=== PATIENT | female | born 1965 | race Caucasian/White ===

== ENCOUNTER 2017-02-01 11:51 | Observation (INO) | payer OTHER ==
[~2017-02-01] VITALS: Ht 154.9 cm; Wt 65.3 kg
--- NOTE | 2017-02-01 15:47 | DIAGNOSTIC IMAGING REPORT ---
PROCEDURE: CT ABD/PELVIS WITH CONTRAST CLINICAL INDICATION: ABDOMINAL PAIN TECHNIQUE: 125 ml of Isovue 300 were injected intravenously and axial images were obtained of the entire abdomen and pelvis with sagittal and coronal reformations. COMPARISON: None. FINDINGS: ABDOMEN: Lung base are clear. Heart size is normal. Liver, gallbladder, pancreas, spleen, adrenal glands and left kidney are normal. 2 cm cortical hypoechoic right renal upper pole lesion with irregular wall. Mild atherosclerosis. Status post gastric bypass and left abdominal small bowel anastomosis. PELVIS: Normal appendix. Minor sigmoid diverticulosis. Bilateral tubal ligation. Uterus, adnexa and bladder are unremarkable. Trace of free fluid. No inflammatory changes. Minor degenerative changes. IMPRESSION: 1. Status post gastric bypass surgery 2. 2 cm renal upper pole cortical indeterminate lesion. Recommend dedicated renal CT scan. 3. Bilateral tubal ligation 4. Results discussed with Dr. Ozuna All CT scans at this facility use dose modulation, iterative reconstruction, and/or weight-based dosing when appropriate to reduce radiation dose to as low as reasonably achievable.
--- NOTE | 2017-02-01 18:33 | DIAGNOSTIC IMAGING REPORT ---
PROCEDURE: US ABDOMEN ULTRASOUND-LIMITED INDICATION: RUQ PAIN TECHNIQUE: Gillette scale and color Doppler sonographic images of the abdomen were obtained. COMPARISON: CT abdomen/pelvis 02/01/2017. FINDINGS: 6 mm non mobile gallbladder mural focus suggestive of a polyp. Normal CBD measures 6.6 mm. Negative Bowman's sign. Visualized portion of the pancreas is unremarkable. Normal liver. Aorta and IVC are patent. Normal hepatopetal flow. Normal right kidney measures 11.4 cm. IMPRESSION: 1. 6 mm gallbladder polyp
--- NOTE | 2017-02-01 19:32 | ED ORDER SUMMARY ---
..... Patient: HENOK ANDREWS OrderSheet [facility] VisitID: [id number] [address] [place] [address] 51y, F Registration Date/Time: 02/01/2017 ORDER SHEET Weight: 72.5 kg (stated) Allergies: Bactrim DS, Penicillins, Percocet, Vicodin, NSAIDS due to bareatric surgery GENERAL ORDERS: Foreclosure Home Inspector (Continuous) (13:03 02/01/2017 Jessica CANTU) (Ack 13:11 Benito) (13:43 DDean R.N.) UA-Culture if indicated Urgent (13:03 02/01/2017 Jessica CANTU) (Ack 13:11 Benito) (14:24 DDean R.N.) Lipase Urgent (13:02/01/2017 Jessica CANTU) (Ack 13:11 Benito) (14:24 DDean R.N.) Cardiac Panel Stat (13:03 02/01/2017 Jessica CANTU) (Ack 13:11 Benito) (14:24 DDean R.N.) EKG - ER Stat (13:03 02/01/2017 Jessica CANTU) (Ack 13:11 Benito) (13:26 DDean R.N.) Acetone, Serum Urgent (13:05 02/01/2017 Jessica CANTU) (Ack 13:11 Benito) (14:24 DDean R.N.) CT Abd/Pel w Cont (Yes) (0.8 /15) (Hx rachana en Y gastric bypass) Urgent (14:26 02/01/2017 Jessica CANTU) (Ack 14:44 Benito) (18:11 DDean R.N.) US Abdomen Limited (Yes) Urgent (16:07 02/01/2017 Jessica CANTU) (Ack 16:16 Benito) (17:42 DDean R.N.) MEDICATION ORDERS: IV FLUIDS: IV NS : initial bolus none -, then 1000 mL/hr for 1h (NOW); Urgent (13:01 02/01/2017 Jessica CANTU) (Ack 13:02 Wisam R.N.) (13:05 Wisam R.N.) Dilaudid IV 1 mg (NOW) (13:02 02/01/2017 Jessica CANTU) (Ack 13:07 DDean R.N.) (13:17 DDean R.N.) Zofran IV 8 mg (NOW) (13:02 02/01/2017 Jessica CANTU) (Ack 13:07 DDean R.N.) (13:18 DDean R.N.) Dilaudid IV 0.5 mg (may repeat x 1 ) (18:33 02/01/2017 DDean R.N. verbal order read back to Jessica CANTU) (18:34 DDean R.N.) IV NS with Normal Saline 1 Liter: initial bolus none -, then 500 mL/hr for X1 (NOW) (19:02 02/01/2017 DDean R.N. per protocol) (19:03 DDean R.N.) ORDER SHEET NOTES: [Electronically signed by Shannan Maldonado R.N. (20:15 02/01/2017)] [Electronically signed by Ben Ozuna MD (22:51 02/01/2017)] [Electronically locked/signed by Shannan Maldonado R.N. (20:15 02/01/2017)]
--- NOTE | 2017-02-01 19:32 | ED ORDER SUMMARY ---
..... Patient: HENOK ANDREWS OrderSheet [facility] VisitID: [id number] [address] [place] [address] 51y, F Registration Date/Time: 02/01/2017 ORDER SHEET Weight: 72.5 kg (stated) Allergies: Bactrim DS, Penicillins, Percocet, Vicodin, NSAIDS due to bareatric surgery GENERAL ORDERS: Director Targeted Marketing (Continuous) (13:03 02/01/2017 Jessica CANTU) (Ack 13:11 Benito) (13:43 DDean R.N.) UA-Culture if indicated Urgent (13:03 02/01/2017 Jessica CANTU) (Ack 13:11 Benito) (14:24 DDean R.N.) Lipase Urgent (13:02/01/2017 Jessica CANTU) (Ack 13:11 Benito) (14:24 DDean R.N.) Cardiac Panel Stat (13:03 02/01/2017 Jessica CANTU) (Ack 13:11 Benito) (14:24 DDean R.N.) EKG - ER Stat (13:03 02/01/2017 Jessica CANTU) (Ack 13:11 Benito) (13:26 DDean R.N.) Acetone, Serum Urgent (13:05 02/01/2017 Jessica CANTU) (Ack 13:11 Benito) (14:24 DDean R.N.) CT Abd/Pel w Cont (Yes) (0.8 /15) (Hx rachana en Y gastric bypass) Urgent (14:26 02/01/2017 Jessica CANTU) (Ack 14:44 Benito) (18:11 DDean R.N.) US Abdomen Limited (Yes) Urgent (16:07 02/01/2017 Jessica CANTU) (Ack 16:16 Benito) (17:42 DDean R.N.) MEDICATION ORDERS: IV FLUIDS: IV NS : initial bolus none -, then 1000 mL/hr for 1h (NOW); Urgent (13:01 02/01/2017 Jessica CANTU) (Ack 13:02 Wisam R.N.) (13:05 Wisam R.N.) Dilaudid IV 1 mg (NOW) (13:02 02/01/2017 Jessica CANTU) (Ack 13:07 DDean R.N.) (13:17 DDean R.N.) Zofran IV 8 mg (NOW) (13:02 02/01/2017 Jessica CANTU) (Ack 13:07 DDean R.N.) (13:18 DDean R.N.) Dilaudid IV 0.5 mg (may repeat x 1 ) (18:33 02/01/2017 DDean R.N. verbal order read back to Jessica CANTU) (18:34 DDean R.N.) IV NS with Normal Saline 1 Liter: initial bolus none -, then 500 mL/hr for X1 (NOW) (19:02 02/01/2017 DDean R.N. per protocol) (19:03 DDean R.N.) ORDER SHEET NOTES: [Electronically signed by Shannan Maldonado R.N. (20:15 02/01/2017)] [Electronically signed by Ben Ozuna MD (22:51 02/01/2017)] [Electronically locked/signed by Shannan Maldonado R.N. (20:15 02/01/2017)]
--- NOTE | 2017-02-01 19:32 | ED CLINICAL REPORT ---
Clinical Report - Physicians/Mid Levels [facility] [address] [place] [address] 02/01/2017 11:53 Patient: HENOK BENITEZ Time Seen: 12:50. Arrived- By private vehicle. Historian- patient and family. HISTORY OF PRESENT ILLNESS Chief Complaint: ABDOMINAL PAIN. At its maximum, severity described as severe. When seen in the E.D., severity described as severe. Modifying factors. Not worsened by anything. Not relieved by anything. It is described as "pain". No radiation. It is described as located in the epigastric area. This started about 4 days ago; Mrs. Benitez has had 4 days of mild to moderate epigastric pain which wax and wane. This morning the pain became markedly worse and she had 4-5 episodes of nonbilious vomiting. The pain was severe. The patient has had nausea. She has had severe vomiting. The vomiting has occurred numerous times. No bilious emesis, feculent emesis, blood-tinged emesis or coffee-grounds emesis. Similar symptoms previously: None. Recent medical care: Not recently seen/assessed. REVIEW OF SYSTEMS Has had a tubal ligation. No constipation, black stools, difficulty with urination or urination or bloody stools. No fever, sore throat or throat, blurred vision or chest pain. No cough, joint pain, skin rash or lesions or chills. No back pain, chills, fever, decreased vision or ear pain. No urinary frequency or urinary problems, hematuria or pelvic pain. PAST HISTORY PCP: [facility] Dr Howard ([facility] surgery) OPs: Gastric bypass Fortunato en Y, C section x, R total knee. Illness: DM 2. Medications: Albuterol Sulfate HFA Inhalation 2 puffs, as needed. Biotene Dry Mouth Mouth/Throat. Allergies: Bactrim DS.(vomiting) NSAIDS due to bareatric surgery . Penicillins. Definite Moderate(hives) Percocet.(itching, vomiting) Vicodin.(vomiting). SOCIAL HISTORY Never smoker. ADDITIONAL NOTES The nursing notes have been reviewed. PHYSICAL EXAM Vital Signs: 02/01/2017 19:55 BP: 129/68. HR: 72. RR: 18. O2 saturation: 98%. Pain level now: 08/20. 02/01/2017 19:30 BP: 147/80. HR: 73. RR: 18. O2 saturation: 99%. Pain level now: 08/20. 02/01/2017 18:50 BP: 134/88. HR: 72. RR: 18. O2 saturation: 100%. Pain level now: 08/20. 02/01/2017 18:30 BP: 175/85. HR: 80. RR: 20. O2 saturation: 100%. Pain level now: 03/20. 02/01/2017 17:45 BP: 131/71. HR: 92. RR: 18. O2 saturation: 99%. Pain level now: 11/18. 02/01/2017 15:40 BP: 142/85. HR: 97. RR: 18. O2 saturation: 100%. Pain level now: 09/20. 02/01/2017 14:45 BP: 149/86. HR: 100. RR: 18. O2 saturation: 100%. Pain level now: . 02/01/2017 13:40 BP: 193/84. HR: 64. RR: 16. O2 saturation: 99%. 02/01/2017 13:10 BP: 160/71. HR: 68. RR: 18. O2 saturation: 92%. Pain level now: 12/18. 02/01/2017 12:27 BP: 180/92. HR: 92. RR: 26. O2 saturation: 99%. Temp: 97.7 F. Appearance: Alert. Patient in severe distress. Eyes: Pupils equal, round and reactive to light. No scleral icterus. ENT: Pharynx normal. Neck: Normal inspection. CVS: Normal heart rate and rhythm. Heart sounds normal. Respiratory: No respiratory distress. Breath sounds normal. Abdomen: Moderate tenderness in the upper abdomen. Abnormal bowel sounds (mildly diminished). No organomegaly. No mass. Femoral pulses equal. No rebound tenderness or guarding. (No inquinal hernia). Back: No CVA tenderness. Skin: Skin warm. Normal skin color. No rash. Extremities: Extremities exhibit normal ROM. No lower extremity edema. Neuro: No alteration in mental status. LABS, X-RAYS, AND EKG Abdominal CT: CLINICAL INDICATION: ABDOMINAL PAIN TECHNIQUE: 125 ml of Isovue 300 were injected intravenously and axial images were obtained of the entire abdomen and pelvis with sagittal and coronal reformations. COMPARISON: None. FINDINGS: ABDOMEN: Lung base are clear. Heart size is normal. Liver, gallbladder, pancreas, spleen, adrenal glands and left kidney are normal. 2 cm cortical hypoechoic right renal upper pole lesion with irregular wall. Mild atherosclerosis. Status post gastric bypass and left abdominal small bowel anastomosis. PELVIS: Normal appendix. Minor sigmoid diverticulosis. Bilateral tubal ligation. Uterus, adnexa and bladder are unremarkable. Trace of free fluid. No inflammatory changes. Minor degenerative changes. IMPRESSION: 1. Status post gastric bypass surgery 2. 2 cm renal upper pole cortical indeterminate lesion. Recommend dedicated renal CT scan. 3. Bilateral tubal ligation 4. Results discussed with Dr. Ozuna All CT scans at this facility use dose modulation, iterative reconstruction, and/or weight-based dosing when appropriate to reduce radiation dose to as low as reasonably achievable. Electronically Final signed by:Isaiah Flowers MD 02/01/2017 3:47:09 PM. The study was interpreted by the radiologist and discussed with the radiologist. Abdominal Sonogram: (PROCEDURE: US ABDOMEN ULTRASOUND-LIMITED INDICATION: RUQ PAIN TECHNIQUE: Gillette scale and color Doppler sonographic images of the abdomen were obtained. COMPARISON: CT abdomen/pelvis 02/01/2017. FINDINGS: 6 mm non mobile gallbladder mural focus suggestive of a polyp. Normal CBD measures 6.6 mm. Negative Bowman's sign. Visualized portion of the pancreas is unremarkable. Normal liver. Aorta and IVC are patent. Normal hepatopetal flow. Normal right kidney measures 11.4 cm. IMPRESSION: 1. 6 mm gallbladder polyp Electronically Final signed by:Isaiah Flowers MD 02/01/2017 6:33:32 PM). The study was interpreted by the radiologist and discussed with the radiologist. Laboratory Tests: UA-Culture if indicated: (LUCA: 02/01/2017 14:00) ( MsgRcvd 02/01/2017 14:40) Final results Test Result Flag Units (Reference) URINE COLOR YELLOW URINE APPEARANCE CLEAR URINE GLUCOSE NEGATIVE (NEGATIVE) URINE BILIRUBIN NEGATIVE (NEGATIVE) URINE KETONE 3+ (NEGATIVE) URINE SPECIFIC GRAVITY 1.020 (1.010-1.030) URINE PH 6.5 (5.0-8.0) URINE PROTEIN 1+ (NEGATIVE) URINE UROBILINOGEN 1.0 EU/dL (0.2-1.0) URINE NITRITE POSITIVE (NEGATIVE) URINE BLOOD NEGATIVE (NEGATIVE) URINE LEUK ESTERASE NEGATIVE (NEGATIVE) URINE RBC NONE SEEN rbc/hpf (0-1) URINE WBC 0-1 wbc/hpf (0-1) URINE EPITHELIAL CELLS 0-1 EPI/hpf (0-5) URINE BACTERIA MANY (4+) (NONE SEEN) URINE COMMENT CULTURE INDICATED URINE CULTURES ARE SET-UP BASED ON THE FOLLOWING CRITERIA:POSITIVE NITRITEPOSITIVE LEUKOCYTE ESTERASEGREATER THAN 10 WHITE BLOOD CELLSMODERATE (2+) OR GREATER BACTERIA CBC w Diff: (LUCA: 02/01/2017 13:30) ( [facility] 02/01/2017 13:46) Final results Test Result Flag Units (Reference) WHITE BLOOD COUNT 8.6 K/uL (4.5-11.5) RED BLOOD COUNT 5.07 M/uL (4.00-5.20) HEMOGLOBIN 15.4 gm/dL (12.0-16.0) HEMATOCRIT 45.1 % (36.0-46.0) MEAN CELL VOLUME 89 fL (80-100) MEAN CORPUSCULAR HGB 30 pg (26-34) MEAN CORPUSCULAR HGB CONC 34 g/dL (31-37) RED CELL DISTRIBUTION WIDTH 12.7 % (11.6-14.8) PLATELET COUNT 203 K/uL (150-400) NEUTROPHIL % 86.4 H % (50-75) LYMPH % 9.0 L % (25-40) MONO % 4.2 % (3-14) EOSINOPHIL % 0 % (0-4) BASOPHIL % 0.4 % (0-2) Acetone, Serum: (LUCA: 02/01/2017 13:30) ( [facility] 02/01/2017 15:11) Final results Test Result Flag Units (Reference) ACETONE, SERUM QUALITATIVE NEGATIVE (NEGATIVE) Lipase: (LUCA: 02/01/2017 13:30) ( [facility] [place] 02/01/2017 13:53) Final results Test Result Flag Units (Reference) LIPASE 84 U/L (73-393) Magnesium: (LUCA: 02/01/2017 13:30) ( [facility] [place] 02/01/2017 14:01) Final results Test Result Flag Units (Reference) GLUCOSE 196 H mg/dL (70-110) BUN 15 mg/dL (7-18) CREATININE 0.8 mg/dL (0.6-1.3) Estimated GFR >60 mL/min Estimated GFR- >60 mL/min Note: Persistent reduction over 3 months in eGFR<60 mL/min/1.73 m2 defines CKD. Patients with eGFR values>=60 mL/min/1.73 m2 may also have CKD if evidence ofpersistent proteinuria. Additional information may be foundat www.kidney.org. SODIUM 142 mmol/L (136-145) POTASSIUM 3.2 L mmol/L (3.5-5.1) CHLORIDE 105 mmol/L (98-107) CARBON DIOXIDE 20 L mmol/L (21-32) CALCIUM 8.8 mg/dL (8.5-10.1) TOTAL PROTEIN 6.8 g/dL (6.4-8.2) ALBUMIN 3.7 g/dL (3.3-5.0) BILIRUBIN, TOTAL 1.1 H mg/dL (0.0-1.0) ALKALINE PHOSPHATASE 77 U/L (46-116) AST (SGOT) 20 U/L (15-37) ALT (SGPT) 20 U/L (12-78) MAGNESIUM 1.9 mg/dL (1.8-2.4) CPK 122 U/L (24-260) TROPONIN I <0.05 ng/mL (0.00-1.5) TROPONIN REFERENCE RANGE:<0.1 NEGATIVE0.1-1.5 INDETERMINANT>1.5 POSITIVE . PROGRESS AND PROCEDURES Course of Care: 13:08 02/01/17. Gastric Bypass, DM 14:30 02/01/17. Comfortable following dilaudid 17:11 02/01/17. Moderate epigastric pain and tenderness no guarding or tenderness to percussion 18:48 02/01/17. Ms. Benitez required another dose of Dilaudid for abdominal pain which had become 8 on a scale of 10. CT scan and abdominal ultrasound were unremarkable. I have paged Dr. Bryan Mayfield. 18:52 02/01/17. I spoke with Dr. Bryan Mccoy who endorses admission for pain control and hydration with possible endoscopy tomorrow. 19:26 02/01/17. I spoke with Dr. Nikolay Delatorre. He agreed to admit the patient. He asked for a ACU observation status. I have just completed transition orders. The patient and her are working together on the admission form. Disposition orders written. Disposition: Admitted. CLINICAL IMPRESSION ACUTE ABDOMINAL PAIN RENAL CYST - INDETERMINATE TYPE HISTORY OF FORTUNATO IN Y GASTRIC BYPASS HISTORY OF DM2. (Electronically signed by Ben Ozuna MD 02/01/2017 22:51)
--- NOTE | 2017-02-01 19:32 | ED NURSING NOTES ---
Clinical Report - Nurses [facility] [address] [place] [address] 02/01/2017 11:53 Patient: HENOK NADREWS TRIAGE Triage time 1227. Acuity: LEVEL 3. Chief Complaint: ABDOMINAL PAIN, NAUSEA and VOMITING. 1227. --13:16 Shannan Maldonado R.N. 13:16 02/01/17. BP: 180/92. HR: 92. RR: 26. O2 saturation: 99%. Temp: 97.7 F. Pain level now 05/20. --13:16 Shannan Maldonado R.N. Weight: 72.5 kg stated. Height/Length: 61 inches Per Patient. BMI: 30.2. --12:36 Shannan Maldonado R.N. Medications Biotene Dry Mouth Mouth/Throat. --12:35 Shannan Maldonado R.N. Albuterol Sulfate HFA Inhalation 2 puffs, as needed. --12:35 Shannan Maldonado R.N. Allergies Bactrim DS.(vomiting) Penicillins. Definite Moderate(hives) Percocet.(itching, vomiting) Vicodin.(vomiting) --12:34 Shannan Maldonado R.N. NSAIDS due to bareatric surgery . --12:35 Shannan Maldonado R.N. History Arrived by private vehicle. Historian: patient. Accompanied by spouse. Onset. (2 days, getting much worse this am). She has had nausea and vomiting. She has had abdominal pain (upper abd pain "all the way across"). No diarrhea. SOCIAL HX: Never smoker. No alcohol use or drug use. --13:16 Shannan Maldonado R.N. PROBLEMS: Hives. Heart Disease. Hyperlipidemia. Diabetes Mellitus. Hypertension. Diabetes Mellitus Type 2. UTI - Urinary Tract Infection. --12:37 Shannan Maldonado R.N. ADDITIONAL SURGERIES: Bariatric Surgery. . Esure stents. --12:37 Shannan Maldonado R.N. Interventions ID band on patient. To treatment room. --13:16 Shannan Maldonado R.N. PHYSICAL ASSESSMENT To room via wheelchair. Patient gowned. GENERAL / NEURO / PSYCH: Alert. Oriented X 4. Appears in distress. RESPIRATORY: Respirations not labored. CVS: Capillary refill less than 2 seconds. GI / : The patient has had nausea. Emesis noted. Abdominal tenderness. SKIN: Skin is warm. Skin is diaphoretic. --12:51 Shannan Maldonado R.N. NURSING PROGRESS NOTES 12:27. Patient gowned. Head of bed elevated. Reassurance given. Patient identifiers checked. Call light placed in reach. Side rails up. Bed placed in lowest position. Patient ready for evaluation- chart flagged. --12:39 Shannan Maldonado R.N. 12:40 02/01/2017 Two (2) unsuccessful IV access attempts. --13:17 Shannan Maldonado R.N. 12:52 02/01/17. Urine collected. (pt walked to bathroom but unable to void). --12:52 Shannan Maldonado R.N. 13:05 02/01/2017 Site #1 started via IV in the right forearm with an 22g angiocath, with aseptic technique and good blood return; one attempt. Saline lock flushed with 10 mL saline. --13:05 Lida Meléndez R.N. 13:05 02/01/2017 Started bag #1 1000 mL IV Fluids IV NS (Saline); at 1000 mL/hr over 1 hour(s) via site #1 --13:05 Lida Meléndez R.N. 13:07 02/01/2017 Dilaudid (HYDROmorphone HCl PF) IVP 1 mg given over 1 minute(s) via site #1. IV patency established. IV site checked: no pain, redness, or swelling. IV flushed thoroughly pre- and post-medication administration. IVP given by RN. --13:17 Shannan Maldonado R.N. 13:08 02/01/2017 Zofran (Ondansetron HCl) IVP 8 mg given over 2 minute(s) via site #1. IV patency established. IV site checked: no pain, redness, or swelling. IV flushed thoroughly pre- and post-medication administration. IVP given by RN. --13:18 Shannan Maldonado R.N. 13:07 IVstarted , meds given- pt now much calmer, states pain still 03/20. --13:18 Shannan Maldonado R.N. 13:10 02/01/17. BP: 160/71. HR: 68. RR: 18. O2 saturation: 92%. Temp: deferred. Pain level now: 12/18. --13:20 Shannan Maldonado R.N. 13:10. ( o2 at 2L placed on pt). --13:26 Shannan Maldonado R.N. 13:40 02/01/17. BP: 193/84. HR: 64. RR: 16. O2 saturation: 99% on nasal cannula at 2 liters/minute. Temp: deferred. Pain level now unable to obtain. Additional comments: pt appears to be dozing. --13:43 Shannan Maldonado R.N. 14:00. 10 fr in/out catheterization. She tolerated procedure well. Patient ID band checked for patient name and birthdate: patient confirmed. Catheterized urine collected with return of yellow-colored urine; sample sent to lab for urinalysis and culture. Specimen labeled in the presence of the patient. --14:10 Shannan Maldonado R.N. EKG time: (13:21). EKG was performed by a tech and shown to the ED physician. --14:11 Terese Ji 14:45 02/01/17. BP: 149/86. HR: 100. RR: 18. O2 saturation: 100%. Temp: deferred. Pain level now: 0/10. Additional comments: ambulated to bathroom with escort. stable on feet . --15:53 Shannan Maldonado R.N. 15:40 02/01/17. BP: 142/85. HR: 97. RR: 18. O2 saturation: 100%. Temp: deferred. Pain level now: 2/10. Additional comments: pt states pain starting to come back, ERMD notified . --15:54 Shannan Maldonado R.N. 16:55 US at bedside to do exam. --17:13 Shannan Maldonado R.N. 17:45 02/01/17. BP: 131/71. HR: 92. RR: 18. O2 saturation: 99%. Temp: deferred. Pain level now: 11/18. --17:46 Shannan Maldonado R.N. 18:30 02/01/2017 Dilaudid (HYDROmorphone HCl PF) IVP 0.5 mg given. via site #1. IV patency established. IV site checked: no pain, redness, or swelling. IV flushed thoroughly pre- and post-medication administration. IVP given by RN. --18:34 Shannan Maldonado R.N. 18:30 02/01/17. BP: 175/85. HR: 80. RR: 20. O2 saturation: 100%. Temp: deferred. Pain level now: 03/20. Additional comments: pt states pain increasing rapidly, asking for more pain meds, ERMD notified, meds ordered and given. --18:35 Shannan Maldonado R.N. 18:45 given [facility] admission form to fill out, call placed to Dr. Mayfield. --18:47 Shannan Maldonado R.N. 18:50 02/01/17. BP: 134/88. HR: 72. RR: 18. O2 saturation: 100%. Temp: deferred. Pain level now: 08/20. --18:57 Shannan Maldonado R.N. 14:20 02/01/2017 IV Fluids IV NS Discontinued: bag #1 infused. Total amount infused: 1000 mL. IV patency established. IV site checked: no pain, redness, or swelling. IV flushed thoroughly. (converted to saline lock). --19:02 Shannan Maldonado R.N. 18:30 02/01/2017 Started bag #2 1000 mL IV Fluids IV NS (Saline); at 500 mL/hr over 2 hour(s) via site #1 via IV pump. IV patency established. IV site checked: no pain, redness, or swelling. IV flushed thoroughly pre- and post-medication administration. --19:03 Shannan Maldonado R.N. 18:40 02/01/2017 Dilaudid (HYDROmorphone HCl PF) IVP 0.5 mg given over 1 minute(s) via site #1. IV patency established. IV site checked: no pain, redness, or swelling. IV flushed thoroughly pre- and post-medication administration. IVP given by RN. --18:47 Shannan Maldonado R.N. 19:30 02/01/17. BP: 147/80. HR: 73. RR: 18. O2 saturation: 99%. Temp: deferred. Pain level now: 08/20. --19:49 Shannan Maldonado R.N. 20:05 02/01/2017 Site #[address] upon admission; patent and no pain. --20:15 Shannan Maldonado R.N. 20:05 02/01/2017 IV Fluids IV NS Continued: upon admission at the rate of 500 mL/hr. 500 mL remaining bag #2. IV patency established. IV site checked: no pain, redness, or swelling. IV flushed thoroughly. --20:14 Shannan Maldonado R.N. DISPOSITION / DISCHARGE Condition at departure: improved and stable. Admitted to Acute Care. Transported via stretcher by [employer]. Report was given. (Steve MCCORMICK, staff nurse). --20:04 Shannan Maldonado R.N. 19:55 02/01/17. BP: 129/68. HR: 72. RR: 18. O2 saturation: 98%. Temp: deferred. Pain level now: 08/20. --20:04 Shannan Maldonado R.N. MELE COMA SCORE: Mele Coma Scale: 15- eyes open spontaneously (4); best verbal response- oriented x 4 (5); best motor response- obeys commands (6). --20:04 Shannan Maldonado R.N. Departure time: 2004. --20:14 Shannan Maldonado R.N. Locked/Released at 02/01/2017 20:15 by Shannan Maldonado R.N.
[2017-02-01 20:20] VITALS: BP 138/87
--- NOTE | 2017-02-01 20:42 | History & Physical Report ---
Information Source Information Source: Self Reliability: Fair History Chief Complaint Abdominal pain History of Present Illness Patient is a 51-year-old female with a past medical history of diabetes now resolved, asthma and obesity status post David-en-Y that is presenting with a 3 day history of abdominal pain. Patient's abdominal pain started 4 days ago on the . Patient claims that the abdominal pain is generalized with no localized to any sort of area. Patient claims that the pain comes in waves and it is not related to any sort of inciting event. Patient has no alleviating factors and patient is only so-so relief is to pain medication. Patient rates the pain as severe as 10 out of 10 in intensity and due to its unrelenting resignation patient came to the hospital. Patient has no other symptoms present during the times of abdominal pain. She denies any nausea vomiting diarrhea, or constipation. Patient has vomited twice while in ER however she claims was secondary to the intensity of the pain. Patient currently at the moment is completely stable and pain-free secondary to the medication given. Patient has no other complaints at the moment and is otherwise stable Patient History 1. Abdominal pain 2. Renal cyst 3. 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 Family History FATHER, ; Cause: Lymphoma, non-Hodgkin's. MOTHER, ; Cause: Renal failure. Advance Directive None Medications and Allergies Medications Home meds Albuterol inhaler as needed Current Medications Sig/Tarah Start time Last Medication Dose Route Stop Time Status Admin Pantoprazole Sodium 40 MG DAILY@02/02 0600 AC 02/02 IV 0528 Ceftriaxone Sodium/ 50 ML QHS 02/01 2100 AC 02/01 Dextrose IV 2128 Acetaminophen 650 MG Q6H PRN 02/02 2000 AC PO Ondansetron HCl 4 MG Q6H PRN 02/02 2000 AC IV Sodium Chloride 1,000 ML ASDIRECTED 02/02 2000 AC 02/01 IV 2236 Hydromorphone HCl See Dose ONCE PRN 02/01 1930 AC 02/02 Insts (1) IV 0700 Ondansetron HCl 4 MG Q4H PRN 02/01 1930 CAN IV Sodium Chloride 1,000 ML ASDIRECTED 02/01 1930 CAN IV 02/02 0030 Dose Instructions: (1)Hydromorphone HCl: 0.5-1 MG Allergies Coded Allergies: Acetaminophen (From PERCOCET) (02/01/17) Hydrocodone (From VICODIN) (02/01/17) NSAIDs (02/01/17) Oxycodone (From PERCOCET) (02/01/17) Penicillins (02/01/17) Sulfamethoxazole w/Trimethoprim (From BACTRIM) (02/01/17) Review of Systems Constitutional Weakness, Malaise. Denies: Fever, Chills, Sweats, Other. Eyes Denies: Pain, Vision Change, Conjunctival Inflammation, Eyelid Inflammation, Redness, Other. ENT Denies: Ear Pain, Ear Discharge, Nose Pain, Nasal Discharge, Nasal Congestion, Mouth Pain, Mouth Swelling, Throat Pain, Throat Swelling, Other. Respiratory Denies: Cough, Dry, SOB w/exertion, Wheezing, Hemoptysis, Pleuritic Pain, Sputum , Other. Cardiovascular Denies: Chest Pain, Palpitations, Orthopnea, PND, Edema, Light-headedness, Other. Gastrointestinal Vomiting, Abdominal Pain. Denies: Nausea, Diarrhea, Constipation, Melena, Hematochezia, Other. Genitourinary Denies: Dysuria, Frequency, Incontinence, Hematuria, Retention, Other. Musculoskeletal Denies: Neck Pain, Shoulder Pain, Arm Pain, Back Pain, Hand Pain, Leg Pain, Foot Pain, Other. Skin Denies: Rash, Lesions, Jaundice, Bruising, Other. Neurological Denies: Weakness, Numbness, Incoordination, Change in speech, Confusion, Seizures, Other. Physical Exam Vital Signs / I&Os Vital Signs Date Time Temp Pulse Resp B/P Pulse O2 O2 Flow FiO2 Ox Delivery Rate 02/02 0725 Room Air 0.0 02/02 0710 98.4 66 18 130/80 98 Room Air 02/02 0205 98.2 65 18 134/86 98 Room Air 02/01 2237 Room Air 02/02 2020 98.2 90 18 138/87 97 Room Air I&O 02/01 0800 02/01 1600 02/02 0000 Intake Total 0 Output Total 150 Balance -150 General Appearance Alert, Oriented X3, No acute distress HEENT Normal exam, Atraumatic, PERRLA, Moist mucous membranes Lungs Clear to auscultation, Normal air movement Neck Supple, No JVD, No masses Cardiovascular Regular rate and rhythm, Normal S1 and S2, No murmurs, gallops, rubs Abdomen Soft, No tenderness, No guarding, No rebound, No masses, No hepatosplenomegaly Extremities No cyanosis, No clubbing, No edema, Normal pulses, No tenderness Skin No Breakdown Neurological Normal gait, Normal tone, Cranial nerves intact, No lateralizing signs Psych/Mental Status Mood normal LAB Results Laboratory Tests 02/01 02/01 02/01 02/02 1330 1330 1400 0546 Chemistry Plasma Sodium (136 - 145 mmol/L) 142 144 Plasma Potassium (3.5 - 5.1 mmol/L) 3.2 3.4 Plasma Chloride (98 - 107 mmol/L) 105 107 CO2 (Enzymatic) (21 - 32 mmol/L) 20 25 BUN (7 - 18 mg/dL) 15 13 Creatinine (0.6 - 1.3 mg/dL) 0.8 0.8 Est GFR ( Amer) (mL/min) >60 >60 Est GFR (Non-Af Amer) (mL/min) >60 >60 Glucose (70 - 110 mg/dL) 196 87 Plasma Calcium (8.5 - 10.1 mg/dL) 8.8 8.3 Plasma Magnesium (1.8 - 2.4 mg/dL) 1.9 1.8 Total Bilirubin (0.0 - 1.0 mg/dL) 1.1 0.6 AST (15 - 37 U/L) 20 16 ALT (12 - 78 U/L) 20 19 Alkaline Phosphatase (46 - 116 U/L) 77 68 Creatine Kinase (24 - 260 U/L) 122 Troponin (0.00 - 1.5 ng/mL) <0.05 Total Protein (6.4 - 8.2 g/dL) 6.8 5.7 Albumin (3.3 - 5.0 g/dL) 3.7 3.2 Amylase (25 - 115 U/L) 28 Lipase (73 - 393 U/L) 84 Hematology WBC (4.5 - 11.5 K/uL) 8.6 7.1 RBC (4.00 - 5.20 M/uL) 5.07 4.43 Hgb (12.0 - 16.0 gm/dL) 15.4 13.7 Hct (36.0 - 46.0 %) 45.1 39.6 MCV (80 - 100 fL) 89 89 MCH (26 - 34 pg) 30 31 RDW (11.6 - 14.8 %) 12.7 13.0 Neut % (Auto) (50 - 75 %) 86.4 57.3 Lymph % (Auto) (25 - 40 %) 9.0 32.8 [place] % (Auto) (3 - 14 %) 4.2 8.9 Eos % (Auto) (0 - 4 %) 0 0.5 Baso % (Auto) (0 - 2 %) 0.4 0.5 Plt Count, EDTA (150 - 400 K/uL) 203 177 PUBS MCHC (31 - 37 g/dL) 34 35 Toxicology Acetone, Qual (NEGATIVE) NEGATIVE Urines Urine Color YELLOW Urine Appearance CLEAR Urine pH (5.0 - 8.0) 6.5 Ur Specific [place] (1.010 - 1.030) 1.020 Urine Protein (NEGATIVE) 1+ Urine Ketones (NEGATIVE) 3+ Urine Blood (NEGATIVE) NEGATIVE Urine Nitrite (NEGATIVE) POSITIVE Urine Bilirubin (NEGATIVE) NEGATIVE Urine Urobilinogen (0.2 - 1.0 EU/dL) 1.0 Ur Leukocyte Esterase (NEGATIVE) NEGATIVE Urine RBC (0 - 1 rbc/hpf) NONE SEEN Urine WBC (0 - 1 wbc/hpf) 0-1 Ur Epithelial Cells (0 - 5 EPI/hpf) 0-1 Urine Bacteria (NONE SEEN) MANY (4+) Urine Glucose (NEGATIVE) NEGATIVE Urine Comment CULTURE INDICATED Microbiology Date/Time Procedure - Status Source Growth 02/01 1400 Urine Culture - RECD URINE CATH Assessment and Plan Problem List 1. Abdominal pain Plan Patient has a four-day history of abdominal pain with no localized area Patient's pain rates 10 out of 10 with no alleviating or exacerbating factors except for pain medication There is no evidence of any pathology on CT scan Patient's laboratory values all within normal limits Patient additionally had an ultrasound which did not see any pathology Currently we'll trend laboratory work We'll consult surgery for possible David-en-Y dysfunction We'll control with pain medication We'll keep nothing by mouth for the time. We'll keep the patient on IV fluids while nothing by mouth 2. Renal cyst Plan Patient has a finding of an incidental renal cyst on CT scan Currently no evidence of renal dysfunction Will have the patient follow-up as an outpatient 3. History of David-en-Y gastric bypass Plan Patient has a history of David-en-Y bypass Patient has lost 185 pounds since initiation Currently no evidence of anatomical defect on CT scan Will have surgery consult the patient for possible endoscopy
--- NOTE | 2017-02-01 22:52 | ED MED RECONCILIATION SUMMARY ---
Patient: HENOK ANDREWS Medication Reconciliation Report [facility] VisitID: [id number] [address] [place] [address] 51y, F Registration Date/Time: 02/01/2017 Weight: 72.5 kg Height/Length: 61 in. BMI: 30.2 ALLERGIES: Bactrim DS, NSAIDS due to bareatric surgery , Penicillins, Percocet, Vicodin The patient's Home Medications are listed below: THE FOLLOWING MEDICATIONS NEED TO BE RECONCILED: Albuterol Sulfate HFA Inhalation 2 puffs Biotene Dry Mouth Mouth/Throat The source(s) of the original Home Medication information: Not obtained. The following Medications were given to the patient in the Emergency Department: IV NS IV Fluids bolus 0, then 1000 mL/hr, administered: 02/01/2017 1:05:00 PM Dilaudid [IVP] IVP 1 mg, administered: 02/01/2017 1:07:00 PM Zofran [IVP] IVP 8 mg, administered: 02/01/2017 1:08:00 PM Dilaudid [IVP] IVP 0.5 mg, administered: 02/01/2017 6:30:00 PM Dilaudid [IVP] IVP 0.5 mg, administered: 02/01/2017 6:40:00 PM IV NS IV Fluids bolus 0, then 500 mL/hr, administered: 02/01/2017 6:30:00 PM The following Medications were prescribed to the patient: None.
--- NOTE | 2017-02-01 22:52 | ED MAR SUMMARY ---
..... Medication Administration Record [facility] [address] [place] [address] Patient: HENOK ANDREWS Visit ID: [id number] 51y, F Weight: 72.5 kg Height/Length: 61 in BMI: 30.2 ALLERGIES: NSAIDS due to bareatric surgery , Bactrim DS, Penicillins, Percocet, Vicodin Start 13:02/01/2017 Lida Meléndez R.N., Stop 14:02/01/2017 Shannan Maldonado R.N. Medication Administered: IV NS (SALINE), Dose: IV Fluids over 1 hour(s), Rate: 1000 mL/hr, Dispensed: 1000 mL bag, Site: #1 right forearm. Medication Ordered: IV NS : initial bolus none -, then 1000 mL/hr for 1h (NOW); Urgent. Given 13:02/01/2017 Shannan Maldonado R.N. Medication Administered: DILAUDID [IVP] (HYDROMORPHONE HCL PF), Dose: 1 mg IVP over 1 minute(s), Site: #1 right forearm. Medication Ordered: Dilaudid IV 1 mg (NOW). Given 13:02/01/2017 Shannan Maldonado R.N. Medication Administered: ZOFRAN [IVP] (ONDANSETRON HCL), Dose: 8 mg IVP over 2 minute(s), Site: #1 right forearm. Medication Ordered: Zofran IV 8 mg (NOW). Given 18:02/01/2017 Shannan Maldonado R.N. Medication Administered: DILAUDID [IVP] (HYDROMORPHONE HCL PF), Dose: 0.5 mg IVP, Site: #1 right forearm. Medication Ordered: Dilaudid IV 0.5 mg (may repeat x 1 ). Start 18:02/01/2017 Shannan Maldonado R.N., Continued Upon Admission 20:02/01/2017 Shannan Maldonado R.N. Medication Administered: IV NS (SALINE), Dose: IV Fluids over 2 hour(s), Rate: 500 mL/hr, Dispensed: 1000 mL bag, Site: #1 right forearm. Medication Ordered: IV NS with Normal Saline 1 Liter: initial bolus none -, then 500 mL/hr for X1 (NOW). Given 18:40 02/01/2017 JoelShannan R.N. Medication Administered: DILAUDID [IVP] (HYDROMORPHONE HCL PF), Dose: 0.5 mg IVP over 1 minute(s), Site: #1 right forearm. Medication Ordered: Dilaudid IV 0.5 mg (may repeat x 1 ).
--- NOTE | 2017-02-01 22:52 | ED DISCHARGE INSTRUCTIONS ---
Patient: HENOK ANDREWS General Instructions [facility] VisitID: [id number] [address] [place] [address] 51y, F Registration Date/Time: 02/01/2017 ACUTE ABDOMINAL PAIN RENAL CYST - INDETERMINATE TYPE HISTORY OF FORTUNATO IN Y GASTRIC BYPASS HISTORY OF DM2. (Electronically signed by Ben Ozuna MD 02/01/2017 22:51)
--- NOTE | 2017-02-01 22:52 | ED MAR SUMMARY ---
..... Medication Administration Record [facility] [address] [place] [address] Patient: HENOK ANDREWS Visit ID: [id number] 51y, F Weight: 72.5 kg Height/Length: 61 in BMI: 30.2 ALLERGIES: NSAIDS due to bareatric surgery , Bactrim DS, Penicillins, Percocet, Vicodin Start 13:02/01/2017 Lida Meléndez R.N., Stop 14:02/01/2017 Shannan Maldonado R.N. Medication Administered: IV NS (SALINE), Dose: IV Fluids over 1 hour(s), Rate: 1000 mL/hr, Dispensed: 1000 mL bag, Site: #1 right forearm. Medication Ordered: IV NS : initial bolus none -, then 1000 mL/hr for 1h (NOW); Urgent. Given 13:02/01/2017 Shannan Maldonado R.N. Medication Administered: DILAUDID [IVP] (HYDROMORPHONE HCL PF), Dose: 1 mg IVP over 1 minute(s), Site: #1 right forearm. Medication Ordered: Dilaudid IV 1 mg (NOW). Given 13:02/01/2017 Shannan Maldonado R.N. Medication Administered: ZOFRAN [IVP] (ONDANSETRON HCL), Dose: 8 mg IVP over 2 minute(s), Site: #1 right forearm. Medication Ordered: Zofran IV 8 mg (NOW). Given 18:02/01/2017 Shannan Maldonado R.N. Medication Administered: DILAUDID [IVP] (HYDROMORPHONE HCL PF), Dose: 0.5 mg IVP, Site: #1 right forearm. Medication Ordered: Dilaudid IV 0.5 mg (may repeat x 1 ). Start 18:02/01/2017 Shannan Maldonado R.N., Continued Upon Admission 20:02/01/2017 Shannan Maldonado R.N. Medication Administered: IV NS (SALINE), Dose: IV Fluids over 2 hour(s), Rate: 500 mL/hr, Dispensed: 1000 mL bag, Site: #1 right forearm. Medication Ordered: IV NS with Normal Saline 1 Liter: initial bolus none -, then 500 mL/hr for X1 (NOW). Given 18:40 02/01/2017 JoelShannan R.N. Medication Administered: DILAUDID [IVP] (HYDROMORPHONE HCL PF), Dose: 0.5 mg IVP over 1 minute(s), Site: #1 right forearm. Medication Ordered: Dilaudid IV 0.5 mg (may repeat x 1 ).
--- NOTE | 2017-02-01 22:52 | ED DISCHARGE INSTRUCTIONS ---
Patient: HENOK ANDREWS General Instructions [facility] VisitID: [id number] [address] [place] [address] 51y, F Registration Date/Time: 02/01/2017 ACUTE ABDOMINAL PAIN RENAL CYST - INDETERMINATE TYPE HISTORY OF FORTUNATO IN Y GASTRIC BYPASS HISTORY OF DM2. (Electronically signed by Ben Ozuna MD 02/01/2017 22:51)
--- NOTE | 2017-02-01 22:52 | ED MED RECONCILIATION SUMMARY ---
Patient: HENOK ANDREWS Medication Reconciliation Report [facility] VisitID: [id number] [address] [place] [address] 51y, F Registration Date/Time: 02/01/2017 Weight: 72.5 kg Height/Length: 61 in. BMI: 30.2 ALLERGIES: Bactrim DS, NSAIDS due to bareatric surgery , Penicillins, Percocet, Vicodin The patient's Home Medications are listed below: THE FOLLOWING MEDICATIONS NEED TO BE RECONCILED: Albuterol Sulfate HFA Inhalation 2 puffs Biotene Dry Mouth Mouth/Throat The source(s) of the original Home Medication information: Not obtained. The following Medications were given to the patient in the Emergency Department: IV NS IV Fluids bolus 0, then 1000 mL/hr, administered: 02/01/2017 1:05:00 PM Dilaudid [IVP] IVP 1 mg, administered: 02/01/2017 1:07:00 PM Zofran [IVP] IVP 8 mg, administered: 02/01/2017 1:08:00 PM Dilaudid [IVP] IVP 0.5 mg, administered: 02/01/2017 6:30:00 PM Dilaudid [IVP] IVP 0.5 mg, administered: 02/01/2017 6:40:00 PM IV NS IV Fluids bolus 0, then 500 mL/hr, administered: 02/01/2017 6:30:00 PM The following Medications were prescribed to the patient: None.
[2017-02-02 02:05] VITALS: BP 134/86
[2017-02-02 07:10] VITALS: BP 130/80
[2017-02-02 11:06] VITALS: BP 141/67
--- NOTE | 2017-02-02 13:11 | CONSULTATION REPORT ---
DATE OF CONSULTATION: 02/02/2017 REFERRING PHYSICIAN: Nikolay Delatorre MD HISTORY OF PRESENT ILLNESS: The patient is a 51-year-old woman presenting with epigastric abdominal pain. The patient reports that her pain started 4 days previously and was of rather gradual onset with recurrent waves of colic in the epigastrium. This got worse and so yesterday she could not stand the pain and presented to the hospital. At that time, she was having some dry heaves, but did not actually bring up much in the way of vomitus. The patient denied diarrhea or lower GI symptoms. The patient had a David-en-Y gastric bypass for weight loss about 1 year ago. Since that time, she lost about 130 pounds. This morning, the patient's pain is a little better, but is still there and still comes in colicky waves. MEDICAL/SURGICAL HISTORY: Medical history is a history of morbid obesity. Past surgery: x2 in 1987 and 2001, bilateral tubal ligation in 2002, throat surgery 2004 and trigger finger release, she had a gastric David-en-Y bypass in 2015. She had a total knee replacement in 2016. MEDICATIONS: 1. ALLERGIES: 1. SOCIAL HISTORY: The patient quit smoking in 03/2012, she rarely takes alcohol, maybe 3 drinks a year at most. FAMILY HISTORY: Father of lymphoma. Mother of renal failure. REVIEW OF SYSTEMS: A multipoint review of systems was obtained by Dr. Delatorre yesterday and is reviewed today. PHYSICAL EXAMINATION: VITAL SIGNS: Current temperature 98.2, pulse 64, respirations 16, blood pressure 141/67, room air saturation 99%. GENERAL: The patient is alert and cooperative. She is oriented to time and place. HEENT: Her ears and nose are without external lesions. Eyes are equal. She is anicteric. NECK: Without palpable masses. There are no bruits. CHEST: Clear to auscultation. HEART: Without murmur or gallop. ABDOMEN: Reveals localized discomfort just to the right of the xiphoid with deep palpation. There is no involuntary guarding. Bowel sounds are active. The abdomen is nondistended. There are multiple trocar scars. EXTREMITIES: Symmetric. She moves without restriction. LAB/IMAGING: Reviewed. Chemistries are all normal. Her white count was normal at 8.6, hemoglobin and hematocrit 15 and 45. Urinalysis demonstrates 4+ bacteria and the patient is currently being treated for a urinary tract infection. Cultures are currently pending. The abdominal CT was normal and status post gastric bypass with a 2 cm right renal cyst. She had an ultrasound which showed a 6 mm mobile mural focus suggesting a polyp with an otherwise normal looking gallbladder. IMPRESSION: Epigastric abdominal pain suspicious for biliary origin. PLAN: I recommended the patient undergo a HIDA scan when available. The symptomatology combined with the time course of profound weight loss is often associated with biliary disease either from stones or a calculus.
--- NOTE | 2017-02-02 14:03 | Progress Note ---
Subjective General Patient seen and examined. Patient has no acute events overnight. Patient is still having the same amount of abdominal pain she had before. The pain medication is helping slightly however patient has no change in the appearance of her abdominal pain. Constitutional Denies: Fever, Chills, Sweats, Weakness, Malaise, Other. Eyes Denies: Pain, Vision Change, Conjunctival Inflammation, Eyelid Inflammation, Redness, Other. ENT Denies: Ear Pain, Ear Discharge, Nose Pain, Nasal Discharge, Nasal Congestion, Mouth Pain, Mouth Swelling, Throat Pain, Throat Swelling, Other. Respiratory Denies: Cough, Dry, SOB w/exertion, Wheezing, Hemoptysis, Pleuritic Pain, Sputum , Other. Cardiovascular Denies: Chest Pain, Palpitations, Orthopnea, PND, Edema, Light-headedness, Other. Gastrointestinal Abdominal Pain. Denies: Nausea, Vomiting, Diarrhea, Constipation, Melena, Hematochezia, Other. Genitourinary Denies: Dysuria, Frequency, Incontinence, Hematuria, Retention, Other. Musculoskeletal Denies: Neck Pain, Shoulder Pain, Arm Pain, Back Pain, Hand Pain, Leg Pain, Foot Pain, Other. Skin Denies: Rash, Lesions, Jaundice, Bruising, Other. Neurological Denies: Weakness, Numbness, Incoordination, Change in speech, Confusion, Seizures, Other. Physical Exam Vital Signs / I&Os Vital Signs Date Time Temp Pulse Resp B/P Pulse O2 O2 Flow FiO2 Ox Delivery Rate 02/02 1106 98.2 64 16 141/67 99 Room Air 02/02 0725 Room Air 0.0 02/02 0710 98.4 66 18 130/80 98 Room Air 02/02 0205 98.2 65 18 134/86 98 Room Air 02/01 2237 Room Air 02/02 2020 98.2 90 18 138/87 97 Room Air I&O 02/01 0800 02/01 1600 02/02 0000 Intake Total 0 Output Total 150 Balance -150 General Appearance Alert, Oriented X3, No acute distress HEENT Atraumatic, EOMI, Moist mucous membranes Lungs Clear to auscultation Neck No JVD, No masses, No thyromegaly Cardiovascular Regular rate and rhythm, Normal S1 and S2, No murmurs, gallops, rubs Abdomen Soft, No guarding, No rebound, No masses, slight epigastric tenderness Extremities No edema, Normal pulses, No tenderness Skin No Breakdown, No Significant Lesions Neurological Normal tone, Reflexes 2+ and equal, Cranial nerves intact, No lateralizing signs Psych/Mental Status Mood normal LAB Results Laboratory Tests 02/02 0546 Chemistry Plasma Sodium (136 - 145 mmol/L) 144 Plasma Potassium (3.5 - 5.1 mmol/L) 3.4 Plasma Chloride (98 - 107 mmol/L) 107 CO2 (Enzymatic) (21 - 32 mmol/L) 25 BUN (7 - 18 mg/dL) 13 Creatinine (0.6 - 1.3 mg/dL) 0.8 Est GFR ( Amer) (mL/min) >60 Est GFR (Non-Af Amer) (mL/min) >60 Glucose (70 - 110 mg/dL) 87 Plasma Calcium (8.5 - 10.1 mg/dL) 8.3 Plasma Magnesium (1.8 - 2.4 mg/dL) 1.8 Total Bilirubin (0.0 - 1.0 mg/dL) 0.6 AST (15 - 37 U/L) 16 ALT (12 - 78 U/L) 19 Alkaline Phosphatase (46 - 116 U/L) 68 Total Protein (6.4 - 8.2 g/dL) 5.7 Albumin (3.3 - 5.0 g/dL) 3.2 Amylase (25 - 115 U/L) 28 Hematology WBC (4.5 - 11.5 K/uL) 7.1 RBC (4.00 - 5.20 M/uL) 4.43 Hgb (12.0 - 16.0 gm/dL) 13.7 Hct (36.0 - 46.0 %) 39.6 MCV (80 - 100 fL) 89 MCH (26 - 34 pg) 31 RDW (11.6 - 14.8 %) 13.0 Neut % (Auto) (50 - 75 %) 57.3 Lymph % (Auto) (25 - 40 %) 32.8 [place] % (Auto) (3 - 14 %) 8.9 Eos % (Auto) (0 - 4 %) 0.5 Baso % (Auto) (0 - 2 %) 0.5 Plt Count, EDTA (150 - 400 K/uL) 177 PUBS MCHC (31 - 37 g/dL) 35 Assessment and Plan Problem List 1. Abdominal pain Plan Patient has abdominal pain of unknown etiology Originally was thought to be secondary to UTI however patient is currently being treated with no change in her presentation Will set up the patient for HIDA scan tomorrow Patient will be on clear liquids for the time being Patient will be nothing by mouth after midnight We'll avoid opiate medication 6 hours prior to HIDA scan We'll continue to monitor patient's liver function test, CBC 2. Renal cyst Plan No management for the current time. 3. History of David-en-Y gastric bypass Plan No anatomical defects noted on CT scan Unlikely to be due to anatomical dysfunction We'll treat the patient prophylactically for GERD
[2017-02-02 15:07] VITALS: BP 146/84
[2017-02-02 18:22] VITALS: BP 127/80
[2017-02-02 22:48] VITALS: BP 141/68
[2017-02-03 04:24] VITALS: BP 147/83
[2017-02-03 06:38] VITALS: BP 146/83
[2017-02-03 11:17] VITALS: BP 161/88
[2017-02-03 14:30] VITALS: BP 140/77
--- NOTE | 2017-02-03 14:30 | Progress Note ---
Subjective General Patient seen and examined. Patient has much less pain than yesterday, patient is requiring much less pain medication than yesterday as well. Patient tolerated clear liquid diet last night, she went for HIDA scan today, currently patient is relatively pain-free and able to tolerate a clear liquid diet. Constitutional Denies: Fever, Chills, Sweats, Weakness, Malaise, Other. Eyes Denies: Pain, Vision Change, Conjunctival Inflammation, Eyelid Inflammation, Redness, Other. ENT Denies: Ear Pain, Ear Discharge, Nose Pain, Nasal Discharge, Nasal Congestion, Mouth Pain, Mouth Swelling, Throat Pain, Throat Swelling, Other. Respiratory Denies: Cough, Dry, SOB w/exertion, Wheezing, Hemoptysis, Pleuritic Pain, Sputum , Other. Cardiovascular Denies: Chest Pain, Palpitations, Orthopnea, PND, Edema, Light-headedness, Other. Gastrointestinal Abdominal Pain. Denies: Nausea, Vomiting, Diarrhea, Constipation, Melena, Hematochezia, Other. Genitourinary Denies: Dysuria, Frequency, Incontinence, Hematuria, Retention, Other. Musculoskeletal Denies: Neck Pain, Shoulder Pain, Arm Pain, Back Pain, Hand Pain, Leg Pain, Foot Pain, Other. Skin Denies: Rash, Lesions, Jaundice, Bruising, Other. Neurological Denies: Weakness, Numbness, Incoordination, Change in speech, Confusion, Seizures, Other. Physical Exam Vital Signs / I&Os Vital Signs Date Time Temp Pulse Resp B/P Pulse O2 O2 Flow FiO2 Ox Delivery Rate 02/03 1117 97.0 73 16 161/88 100 Room Air 0.0 02/03 0812 Room Air 0.0 02/03 0638 98.4 71 20 146/83 100 Room Air 0.0 02/03 0424 98.1 59 20 147/83 100 Room Air 02/02 2248 98.6 141 20 141/68 100 Room Air 02/02 1940 Room Air 02/02 1822 99.1 70 16 127/80 99 Room Air 02/02 1507 98.8 71 16 146/84 100 Room Air I&O 02/02 0800 02/02 1600 02/03 0000 Intake Total 792 1430 1360 Output Total 500 150 950 Balance 292 1280 410 General Appearance Alert, Oriented X3, No acute distress HEENT Atraumatic, PERRLA, Moist mucous membranes Lungs Clear to auscultation Neck No JVD, No masses Cardiovascular Regular rate and rhythm, No murmurs, gallops, rubs Abdomen Soft, No tenderness, No guarding, No hepatosplenomegaly Extremities No edema, Normal pulses, No tenderness Skin No Breakdown Neurological Normal speech, Sensation intact, Cranial nerves intact, No lateralizing signs Psych/Mental Status Mood normal LAB Results Laboratory Tests 02/03 0510 Chemistry Plasma Sodium (136 - 145 mmol/L) 144 Plasma Potassium (3.5 - 5.1 mmol/L) 3.9 Plasma Chloride (98 - 107 mmol/L) 107 CO2 (Enzymatic) (21 - 32 mmol/L) 28 BUN (7 - 18 mg/dL) 8 Creatinine (0.6 - 1.3 mg/dL) 0.7 Est GFR ( Amer) (mL/min) >60 Est GFR (Non-Af Amer) (mL/min) >60 Glucose (70 - 110 mg/dL) 86 Plasma Calcium (8.5 - 10.1 mg/dL) 8.5 Total Bilirubin (0.0 - 1.0 mg/dL) 0.7 AST (15 - 37 U/L) 18 ALT (12 - 78 U/L) 20 Alkaline Phosphatase (46 - 116 U/L) 71 Total Protein (6.4 - 8.2 g/dL) 6.1 Albumin (3.3 - 5.0 g/dL) 3.4 Hematology WBC (4.5 - 11.5 K/uL) 5.4 RBC (4.00 - 5.20 M/uL) 4.76 Hgb (12.0 - 16.0 gm/dL) 14.6 Hct (36.0 - 46.0 %) 42.6 MCV (80 - 100 fL) 90 MCH (26 - 34 pg) 31 RDW (11.6 - 14.8 %) 13.0 Neut % (Auto) (50 - 75 %) 49.8 Lymph % (Auto) (25 - 40 %) 40.0 [place] % (Auto) (3 - 14 %) 8.6 Eos % (Auto) (0 - 4 %) 0.8 Baso % (Auto) (0 - 2 %) 0.8 Plt Count, EDTA (150 - 400 K/uL) 188 PUBS MCHC (31 - 37 g/dL) 34 Assessment and Plan Problem List 1. Abdominal pain Plan Currently patient's, pain is improving significantly Will await results of HIDA scan Will restart the patient a clear liquid diet As per surgery awaiting results of HIDA scan Patient continues to do well we'll consider discharge tomorrow if no pathology is seen in the hepatobiliary tree 2. History of David-en-Y gastric bypass Plan No anatomical defects noted on CT scan Patient able to tolerate a clear liquid diet Unlikely to be secondary to increased acid production
--- NOTE | 2017-02-03 17:36 | DIAGNOSTIC IMAGING REPORT ---
PROCEDURE: NM HEPATOBILIARY IMAGING INDICATION: Abdominal pain. TECHNIQUE: 7 mCi technetium 99m Choletec injected intravenously. Sequential images were acquired over a 1 hour time interval. Subsequently, the patient ingested a fatty meal (fatty meal replacement shake) with images acquired over a 1 hour time interval, followed by calculation of gallbladder ejection fraction. COMPARISON: Compared to abdominal ultrasound and CT abdomen and pelvis studies on 02/01/2017. FINDINGS: Prompt liver uptake. Common duct and bowel activity at 15 minutes. Gallbladder is visualized at 38 minutes. Gallbladder ejection fraction is normal (calculated at 43%). IMPRESSION: 1. Normal nuclear medicine biliary scan with gallbladder ejection fraction of 43%. 2. Findings discussed with Dr. Bryan Mayfield.
[2017-02-03 18:15] VITALS: BP 142/84
[2017-02-03] MEDS ORDERED: KEFLEX500 M1 PO (19:53)
[2017-02-03] MEDS ORDERED: PROTONIX40 MG PO (19:53)
--- NOTE | 2017-02-03 19:57 | Provider's Discharge Care Plan ---
Problem, Goal, Plan Problem List 1. Abdominal pain Goals: Improve disease control, Prevent disease progress Instructions: Follow up as directed, Take meds as directed, Follow up Dr. Noland. in am 2. UTI (urinary tract infection) Goals: Improve disease control, Prevent disease progress Instructions: Follow up as directed, Take meds as directed, Follow with your family physician next week to recheck your urine to insure infection treated.
--- NOTE | 2017-02-03 19:58 | Discharge Summary ---
Discharge Summary Report Admit Date 02/01/17 Discharge Date 02/03/17 Admission Diagnosis 1. Abdominal pain Discharge Diagnosis 1. Abdominal pain 2. UTI Brief History The patient is a 51-year-old white female with a significant past medical history of diabetes mellitus, asthma, obesity, who presented to [facility] emergency department on the day of admission secondary to complaints of abdominal pain. [facility] ER evaluation consistent with abdominal pain of unknown etiology. Rule out gallbladder dysfunction/peptic ulcer disease. Secondary to the above, the patient was admitted by Nikolay Delatorre M.D. for further evaluation and treatment. For other history present illness, past medical history, family history, social history, review of systems, and admission physical examination please see the patient's history and physical examination and ER visit note in the patient's medical record. Hospital Course The following problems and their management were noted during the patient's hospitalization: 1. Abdominal pain The patient was admitted with findings of abdominal pain. She was treated with PPIs and pain management. Her symptoms resolved completely prior to her discharge. She underwent HIDA scan which showed no signs of gallbladder dysfunction. It was recommended patient undergo upper endoscopy which she wished to defer to an outpatient procedure. The patient will follow-up with Dr. Mayfield the day post discharge to arrange for outpatient upper endoscopy. She was discharged on Protonix 40 mg 1 by mouth twice a day. She was asymptomatic at the time of discharge. 2. UTI The patient was noted to have findings of UTI or hospital stay. Urine C&S grew out Klebsiella pneumoniae. This was sensitive to Keflex. The patient was discharged on Keflex 500 mg by mouth 3 times a day. She will follow up with her PCP next week for repeat urinalysis to assess resolution of her UTI. She was asymptomatic with normal temperature and white count on discharge. General Appearance Alert, Oriented X3, Cooperative, No acute distress Lungs Clear to auscultation, Normal air movement Cardiovascular Regular Rate, Normal S1, Normal S2 Abdomen Normal bowel sounds, Soft, No tenderness Neurological Strength at 5/5 X4 ext, Normal tone, Cranial nerves 3-12 NL Psych/Mental Status Mental status NL, Mood NL Discharge Instructions/Meds For other recommendations regarding discharge diet, activity, followup, and discharge medications please see the patient's discharge instructions. Discharge condition: Good, improved Greater than 30 min. was spent in the patient's discharge preparation including discharge interview and physical examination, progress note, discharge instructions, and discharge summary The patient was interviewed and examined on the day of discharge. E&M Codes Discharge: Inpt >30 min spent/[id number]
--- NOTE | 2017-02-03 19:58 | Discharge Summary ---
Discharge Summary Report Admit Date 02/01/17 Discharge Date 02/03/17 Admission Diagnosis 1. Abdominal pain Discharge Diagnosis 1. Abdominal pain 2. UTI Brief History The patient is a 51-year-old white female with a significant past medical history of diabetes mellitus, asthma, obesity, who presented to [facility] emergency department on the day of admission secondary to complaints of abdominal pain. [facility] ER evaluation consistent with abdominal pain of unknown etiology. Rule out gallbladder dysfunction/peptic ulcer disease. Secondary to the above, the patient was admitted by Nikolay Delatorre M.D. for further evaluation and treatment. For other history present illness, past medical history, family history, social history, review of systems, and admission physical examination please see the patient's history and physical examination and ER visit note in the patient's medical record. Hospital Course The following problems and their management were noted during the patient's hospitalization: 1. Abdominal pain The patient was admitted with findings of abdominal pain. She was treated with PPIs and pain management. Her symptoms resolved completely prior to her discharge. She underwent HIDA scan which showed no signs of gallbladder dysfunction. It was recommended patient undergo upper endoscopy which she wished to defer to an outpatient procedure. The patient will follow-up with Dr. Mayfield the day post discharge to arrange for outpatient upper endoscopy. She was discharged on Protonix 40 mg 1 by mouth twice a day. She was asymptomatic at the time of discharge. 2. UTI The patient was noted to have findings of UTI or hospital stay. Urine C&S grew out Klebsiella pneumoniae. This was sensitive to Keflex. The patient was discharged on Keflex 500 mg by mouth 3 times a day. She will follow up with her PCP next week for repeat urinalysis to assess resolution of her UTI. She was asymptomatic with normal temperature and white count on discharge. General Appearance Alert, Oriented X3, Cooperative, No acute distress Lungs Clear to auscultation, Normal air movement Cardiovascular Regular Rate, Normal S1, Normal S2 Abdomen Normal bowel sounds, Soft, No tenderness Neurological Strength at 5/5 X4 ext, Normal tone, Cranial nerves 3-12 NL Psych/Mental Status Mental status NL, Mood NL Discharge Instructions/Meds For other recommendations regarding discharge diet, activity, followup, and discharge medications please see the patient's discharge instructions. Discharge condition: Good, improved Greater than 30 min. was spent in the patient's discharge preparation including discharge interview and physical examination, progress note, discharge instructions, and discharge summary The patient was interviewed and examined on the day of discharge. E&M Codes Discharge: Inpt >30 min spent/[id number]
== END 2017-02-03 23:00 | disposition home or self-care (01) ==
LOC: ED SRH 11:51 → ACUTE2 SRH 19:09 → TRANS SRH 19:09 → ACUTE2 SRH 20:05
PROVIDERS: ADMIT Internal Medicine
DX: R10.13 Epigastric pain (principal); N39.0 Urinary tract infection, site not specified; B96.1 Klebsiella pneumoniae [K. pneumoniae] as the cause of diseases classified elsewhere; Z98.84 Bariatric surgery status
CPT/HCPCS: 29230; 29253; 29259; 29264; 90004; 90074; 90098; 90100; 90148; 90301; 90469; 90616; 92235; 92530; 92610; 92720; 95059